=== PATIENT | female | born 2000 | race African-American/Black ===

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

== ENCOUNTER 2019-04-01 21:46 | Emergency (ER) | payer OTHER ==
[~2019-04-01] VITALS: Ht 162.6 cm; Wt 86.2 kg
[~2019-04-01 21:46] MED LIST changes: +IBUPROFEN600 MG ORAL; +NKM
--- NOTE | 2019-04-01 21:54 | NUR ---
ED Nurse Note: Walk-in patient with ciomplaints of recent fall and exacerbation of old knee injury. back and knee involvement. patient in room, will continue to monitor.
--- NOTE | 2019-04-01 22:15 | NUR ---
ED Nurse Note: Radiology at bedside.
--- NOTE | 2019-04-01 22:47 | NUR ---
ED Nurse Note: Patient went over with headend technician for more imaging.
--- NOTE | 2019-04-01 22:56 | NUR ---
ED Nurse Note: Patient returned from radiology.
[2019-04-01] MEDS ORDERED: IBUPROFEN600 MG ORAL (23:09)
[2019-04-01 23:18] VITALS: BP 107/74
--- NOTE | 2019-04-01 23:18 | NUR ---
ER DISCHARGE NOTE: Patient is cleared to be discharged per ERMD, pt is aox4, on room air, with stable vital signs. pt was given dc and prescription instructions, pt was able to verbalize understanding, pt id band removed without complications. pt is able to ambulate with steady gait. pt took all belongings accompanied by boyfriend. .
--- NOTE | 2019-04-02 03:25 | Emergency Room Report ---
History of Present Illness General Chief Complaint: Lower Extremity Injury Present Illness HPI Patient is a 18-year-old female presents after recent fall. Patient presenting increased pain to the left knee. She also reports having some pain to the low back. Denies any other locations of pain. Denies being . She had not been vomiting. She denies any weakness to her extremities. She had injury several days prior to arrival. Denies any numbness or weakness to her extremities after the fall. Allergies: Coded Allergies: No Known Allergies (Unverified , 07/06/14) Patient History Past Medical History: see triage record Last Menstrual Period: 02/2019 Reviewed Nursing Documentation: PMH: Agreed; PSxH: Agreed Nursing Documentation-PMH Hx Cardiac Problems: No Hx Hypertension: No Hx Pacemaker: No Hx Asthma: No Hx COPD: No Hx Diabetes: No Hx Cancer: No Hx Gastrointestinal Problems: No Hx Dialysis: No Hx Neurological Problems: No Hx Cerebrovascular Accident: No Hx Seizures: No Review of Systems All Other Systems: negative except mentioned in HPI Physical Exam Vital Signs Date Time Temp Pulse Resp B/P (MAP) Pulse Ox O2 Delivery O2 Flow Rate FiO2 04/01/19 21:49 99.0 74 16 107/74 (85) 98 Room Air General Appearance: well appearing, no apparent distress, alert, GCS 15 Head: normocephalic, atraumatic ENT: hearing grossly normal, normal voice Neck: full range of motion, supple Respiratory: chest non-tender, lungs clear, no respiratory distress, speaking full sentences Gastrointestinal: normal inspection Musculoskeletal: normal range of motion, no calf tenderness Neurologic: alert, motor strength/tone normal, bias binding folder III-XII nml as tested, oriented x3, normal gait Psychiatric: mood/affect normal Skin: no rash Medical Decision Making Diagnostic Impression: Primary Impression: Knee contusion Additional Impressions: Low back pain Hamburg-Schlatter's disease ER Course Patient presented for knee pain and low back pain after a fall. Differential diagnosis include was not limited to muscle strain, disc herniation, fracture, knee sprain, contusion among others. X-ray imaging was ordered of the lumbar spine as well as the left knee. Patient x-rays did not show any evidence of acute bony fracture or malalignment. Lumbar spine x-rays did not show any evidence of fracture. Patient given prescription for pain medication. She is advised to follow-up with her primary care physician for recheck. She advised to return if worse. test was noted be negative. Laboratory Tests Test 04/01/19 22:25 Urine HCG, Qualitative Negative (NEGATIVE) Last Vital Signs Date Time Temp Pulse Resp B/P (MAP) Pulse Ox O2 Delivery O2 Flow Rate FiO2 04/01/19 23:18 99.0 16 107/74 98 Room Air 04/01/19 21:49 74 Status: improved Disposition: HOME, SELF-CARE Condition: Stable Scripts Ibuprofen* (MOTRIN*) 600 Mg Tablet 600 MG ORAL THREE TIMES A DAY, #30 TAB 0 Refills Prov: Jaime Smith MD 04/01/19 Referrals: NON PHYSICIAN (PCP) Patient Instructions: Back Pain, Adult, Contusion-SportsMed Jaime Smith MD Apr 02, 2019 03:25
--- NOTE | 2019-04-02 11:48 | Diagnostic Imaging Report ---
Indication: Back pain Comparison: None Findings: 3 views of the lumbar spine were obtained. No acute fracture or malalignment is identified. Vertebral body heights and disk spaces are well maintained. Posterior elements are unremarkable. Impression: No acute findings.
--- NOTE | 2019-04-02 11:53 | Diagnostic Imaging Report ---
INDICATION: Knee Pain COMPARISON: None 3 views of the left knee were obtained. FINDINGS: No acute fracture, malalignment, or joint effusion are identified. Impression: Negative for acute injury
== END 2019-04-01 23:18 | disposition home or self-care (01) ==
LOC: EMR 22:10
DX: S80.02XA Contusion of left knee, initial encounter (principal); M54.5 Low back pain; M92.50 Unspecified juvenile osteochondrosis of tibia and fibula; W01.0XXA Fall on same level from slipping, tripping and stumbling without subsequent striking against object, initial encounter; Y93.9 Activity, unspecified; Y92.9 Unspecified place or not applicable
CPT/HCPCS: 72020; 73562; 81025; Z7502; 99284